=== PATIENT | female | born 1970 | race Caucasian/White ===

== ENCOUNTER → 2016-07-21 | Day surgery (SDC) | payer OTHER | END | disposition home or self-care (01) | LOC: SDC 09:00 | DX: K63.5 Polyp of colon (principal); K57.30 Diverticulosis of large intestine without perforation or abscess without bleeding; R19.7 Diarrhea, unspecified; R10.11 Right upper quadrant pain; K80.20 Calculus of gallbladder without cholecystitis without obstruction; F17.210 Nicotine dependence, cigarettes, uncomplicated; R06.02 Shortness of breath; R12 Heartburn; J45.909 Unspecified asthma, uncomplicated; K76.0 Fatty (change of) liver, not elsewhere classified; G25.81 Restless legs syndrome; E66.01 Morbid (severe) obesity due to excess calories | CPT/HCPCS: 87507; J2704 ==

== ENCOUNTER → 2016-07-27 | Day surgery (SDC) | payer OTHER | END | disposition home or self-care (01) | LOC: SDC 12:13 | DX: K80.10 Calculus of gallbladder with chronic cholecystitis without obstruction (principal); J45.909 Unspecified asthma, uncomplicated; K21.9 Gastro-esophageal reflux disease without esophagitis; E66.01 Morbid (severe) obesity due to excess calories; F17.210 Nicotine dependence, cigarettes, uncomplicated; Z79.899 Other long term (current) drug therapy; Z98.890 Other specified postprocedural states | CPT/HCPCS: C1894; J0360; J1885; J2704; J2765; Q9967 ==

== ENCOUNTER 2016-07-28 19:48 | Emergency (ER) | payer OTHER | END 2016-07-28 22:45 | disposition left against medical advice (07) | LOC: ER 19:48 | DX: I21.4 Non-ST elevation (NSTEMI) myocardial infarction (principal); R11.2 Nausea with vomiting, unspecified; I10 Essential (primary) hypertension; F17.210 Nicotine dependence, cigarettes, uncomplicated; Z90.49 Acquired absence of other specified parts of digestive tract; Z88.5 Allergy status to narcotic agent | CPT/HCPCS: 36415; 96365; 96375; Q9967 ==